=== PATIENT | male | born 1980 | race Caucasian/White ===

== ENCOUNTER 2018-07-02 11:04 | Day surgery (SDC) | payer BC ==
[~2018-07-02] VITALS: Ht 175.3 cm; Wt 85.7 kg
[2018-07-02] MEDS ORDERED: OMEPRAZOLE (11:51)
[2018-07-02 11:57] VITALS: Ht 175.3 cm; Wt 85.7 kg
--- NOTE | 2018-07-02 12:17 | PREAC ---
Date/Time of Note Date/Time of Note DATE: 07/02/18 TIME: 12:16 Anesthesia Eval and Record Evaluation Time Pre-Procedure Interview DATE: 07/02/18 TIME: 12:16 Age 37 Sex male NPO: 8 hrs Preoperative diagnosis Abdominal pain / reflux esophagitis Planned procedure EGD Past Medical History Past Medical History: Includes GI: GERD Surgery & Anesthesia Issues No known issue Meds Anticoagulation: No Beta Juan Carlos within 24 hr: No Reason Beta Juan Carlos not given: Pt. not on B-Juan Carlos Reported Medications [Omeprazole] No Conflict Check 07/02/18 Meds reviewed: Yes Allergies Coded Allergies: No Known Allergy (Unverified , 07/02/18) Allergies Reviewed: Yes Labs/Studies Labs Reviewed: Reviewed by anesthesiologist test: N/A Pre-procedure Exam Airway: Adequate mouth opening, Adequate thyromental dist Mallampati: Mallampati II Teeth: Normal Lung: Normal Heart: Normal ASA Physical Status ASA physical status: 2 Emergency: None Planned Anesthetic General/MAC: MAC Pre-operative Attestations Prior to commencing anesthesia and surgery, the patient was re-evaluated, there was verification of: *The patient's identity *The results of appropriate recent lab work and preoperative vital signs *The above evaluation not changing prior to induction *Anesthetic plan, risk benefits, alternative and complications discussed with patient/family; questions answered; patient/family understands, accepts and wishes to proceed. RAFA ZELAYA Jul 02, 2018 12:17
[2018-07-02] MEDS ORDERED: PROPOFOL 20 ML ONE (12:18)
[2018-07-02] MEDS ORDERED: LIDOCAINE 2% (SDV) 5 ML INJ ONE (12:18)
[2018-07-02] MEDS ORDERED: FENTAnyl 50 MCG/ML VIAL IV PRN (12:30)
[2018-07-02] MEDS ORDERED: ONDANSETRON 4 MG INJ IV PRN (12:30)
[2018-07-02] MEDS ORDERED: ACETAMINOPHEN 500 MG TAB PO PRN (12:30)
[2018-07-02] MEDS ORDERED: ALBUTEROL 0.083% (NEB) 2.5 MG/3 ML AMP HHN PRN (12:30)
[2018-07-02 12:36] VITALS: BP 104/70; PULSE 71; RESP 17
--- NOTE | 2018-07-02 12:55 | PAC ---
Date/Time of Note Date/Time of Note DATE: 07/02/18 TIME: 12:54 Post-Anesthesia Notes Post-Anesthesia Note Last documented vital signs Vital Signs Date Temp Pulse Resp B/P (MAP) Pulse Ox O2 O2 Flow FiO2 Time Delivery Rate 07/02/18 97.7 98 71 65 17 16 104/70 97 99 Room 12:36 124 (81) 101/ Air 8L 5 58 face mask Activity: WNL Respiratory function: WNL Cardiovascular function: WNL Mental status: Baseline Pain reasonably controlled: Yes Hydration appropriate: Yes Nausea/Vomiting absent: Yes RAFA ZELAYA Jul 02, 2018 12:55
[2018-07-02 13:15] VITALS: BP 104/69; PULSE 45; RESP 18
== END 2018-07-02 16:10 | disposition home or self-care (01) ==
LOC: GIL 11:04
PROVIDERS: ATTEND Internal Medicine Gastroenterology
DX: K21.9 Gastro-esophageal reflux disease without esophagitis (principal); K29.50 Unspecified chronic gastritis without bleeding
CPT/HCPCS: 43239; 88305; 88312; Z7610